=== PATIENT | male | born 1930 | race Hispanic/Latino ===

== ENCOUNTER 2017-12-11 17:50 | Emergency (ER) | payer MEDICARE ==
[~2017-12-11 17:50] MED LIST: DIGO125T87 PO; FURO40TA5 PO; GENTLESORB IRON PO; INSLAN SQ; INSU100C6 SQ; LATA2.5D2 OU; MEMA5TAB15 PO; OMEP20CA10 PO; WARF-67 PO
[2017-12-11 19:19] LABS: BASOPHILS % (AUTO) 1.2 % (0.0-5.0); EOSINOPHILS % (AUTO) 1.9 % (0.0-8.0); HEMATOCRIT 37.1 % (42-54); LYMPHOCYTES % (AUTO) 11.5 % (21.0-51.0); MEAN CORPUSCULAR HEMOGLOBIN 29.4 pg (27.0-33.0); MEAN CORPUSCULAR HGB CONC 32.2 g/dL (32.0-36.0); MEAN CORPUSCULAR VOLUME 91.3 fL (79-99); NEUTROPHILS % (AUTO) 77.4 % (40.0-77.0); PLATELET COUNT (AUTO) 82 K/uL (130-400); RED BLOOD CELL COUNT(AUTO) 4.06 MIL/uL (4.50-6.20); RED CELL DISTRIBUTION WIDTH 20.6 % (11.0-15.5)
[2017-12-11 19:31] LABS: CREATININE 1.1 mg/dL (0.5-1.5); POTASSIUM 4.2 mmol/L (3.5-5.1)
[2017-12-11 19:36] LABS: ALBUMIN 2.4 g/dL (3.5-5.0); BILIRUBIN,DIRECT 0.8 mg/dL (0.0-0.3); BILIRUBIN,TOTAL 1.2 mg/dL (0.2-1.0); TOTAL PROTEIN, SERUM 7.3 g/dL (6.0-8.3)
[2017-12-11 20:02] LABS: APPEARANCE,URINE Clear (CLEAR); BILIRUBIN,URINE Negative (NEGATIVE); COLOR,URINE Dark Yellow (YELLOW); GLUCOSE, URINE (UA) Negative (NEGATIVE); KETONES,URINE Negative (NEGATIVE); LEUKOCYTE ESTERASE ,URINE Negative (NEGATIVE); NITRATE,URINE Negative (NEGATIVE); OCCULT BLOOD,URINE Negative (NEGATIVE); PROTEIN,URINE Trace (NEGATIVE)
[2017-12-11 20:19] LABS: BACTERIA,URINE Rare /HPF (None Seen); RBC,URINE 0-1 /HPF (0-1); WBC,URINE 0-1 /HPF (0-1)
[2017-12-11 20:20] LABS: SQUAMOUS EPITHELIAL CELL,UR Rare /LPF (0-2)
[2017-12-11 21:10] LABS: INR 3.06 (0.85-1.15); PROTHROMBIN TIME 31.4 SEC (9.6-11.6)
[2017-12-11 21:23] LABS: PARTIAL THROMBOPLASTIN TIME > 120.0 SEC (26.3-35.5)
== END 2017-12-11 23:28 | disposition home or self-care (01) ==
LOC: EDH 17:50
DX: R94.5 Abnormal results of liver function studies (principal); R68.83 Chills (without fever); R53.1 Weakness; R10.31 Right lower quadrant pain; R10.32 Left lower quadrant pain; R19.7 Diarrhea, unspecified; R11.0 Nausea; E11.9 Type 2 diabetes mellitus without complications; E78.5 Hyperlipidemia, unspecified; I10 Essential (primary) hypertension; J44.9 Chronic obstructive pulmonary disease, unspecified; G30.9 Alzheimer's disease, unspecified; F02.80 Dementia in other diseases classified elsewhere, unspecified severity, without behavioral disturbance, psychotic disturbance, mood disturbance, and anxiety; Z88.6 Allergy status to analgesic agent; Z88.8 Allergy status to other drugs, medicaments and biological substances; Z79.899 Other long term (current) drug therapy; Z98.890 Other specified postprocedural states
CPT/HCPCS: 36415; 71046; 76705; 80048; 80076; 80162; 81001; 82948; 83605; 85025; 85610; 85730; 87804

== ENCOUNTER 2017-12-27 18:34 | Inpatient (IN) | payer MEDICARE ==
[~2017-12-27] VITALS: Ht 172.7 cm; Wt 73.4 kg
[2017-12-27 20:24] LABS: BASOPHILS % (AUTO) 0.5 % (0.0-5.0); EOSINOPHILS % (AUTO) 2.3 % (0.0-8.0); HEMATOCRIT 30.7 % (42-54); LYMPHOCYTES % (AUTO) 6.3 % (21.0-51.0); MEAN CORPUSCULAR HGB CONC 33.1 g/dL (32.0-36.0); MEAN CORPUSCULAR VOLUME 93.5 fL (79-99); MONOCYTES % (AUTO) 7.4 % (3.0-13.0); NEUTROPHILS % (AUTO) 83.5 % (40.0-77.0); PLATELET COUNT (AUTO) 130 K/uL (130-400); RED BLOOD CELL COUNT(AUTO) 3.29 MIL/uL (4.50-6.20); RED CELL DISTRIBUTION WIDTH 20.3 % (11.0-15.5); WHITE BLOOD COUNT (AUTO) 5.4 K/uL (4.8-10.8)
[2017-12-27 20:50] LABS: CREATININE 1.1 mg/dL (0.5-1.5); POTASSIUM 4.4 mmol/L (3.5-5.1)
[2017-12-27 20:54] LABS: INR 2.15 (0.85-1.15); PROTHROMBIN TIME 22.2 SEC (9.6-11.6)
[2017-12-27 21:11] LABS: PARTIAL THROMBOPLASTIN TIME > 120.0 SEC (26.3-35.5)
[2017-12-27 21:16] LABS: ALBUMIN 2.1 g/dL (3.5-5.0); BILIRUBIN,TOTAL 2.5 mg/dL (0.2-1.0); CREATINE KINASE MB 1.5 ng/mL (0.5-3.6); TOTAL PROTEIN, SERUM 6.8 g/dL (6.0-8.3)
[2017-12-27] MEDS ORDERED: AZITHROMYCIN 250 MG TABLET PO ONE (21:23)
[2017-12-27] MEDS ORDERED: CEFTRIAXONE SODIUM 1 GM ONE (21:23)
[2017-12-27] MEDS ORDERED: LEVOFLOXACIN 500 MG TABLET ONE (21:58)
[2017-12-28 01:58] VITALS: BP 119/55
[2017-12-28 02:02] LABS: APPEARANCE,URINE Cloudy (CLEAR); BILIRUBIN,URINE Negative (NEGATIVE); COLOR,URINE Dark Yellow (YELLOW); GLUCOSE, URINE (UA) Negative (NEGATIVE); KETONES,URINE Negative (NEGATIVE); LEUKOCYTE ESTERASE ,URINE Negative (NEGATIVE); NITRATE,URINE Negative (NEGATIVE); OCCULT BLOOD,URINE Negative (NEGATIVE); PROTEIN,URINE POS 1+ (NEGATIVE)
[2017-12-28 02:21] LABS: AMORPHOUS SEDIMENT,UR Moderate /LPF (None Seen); BACTERIA,URINE Rare /HPF (None Seen); MUCUS,URINE Rare LPF (None Seen); RBC,URINE None Seen /HPF (0-1); SQUAMOUS EPITHELIAL CELL,UR None Seen /LPF (0-2); WBC,URINE None Seen /HPF (0-1)
[2017-12-28 03:54] VITALS: BP 124/56
[2017-12-28 04:42] LABS: MEAN CORPUSCULAR HEMOGLOBIN 30.7 pg (27.0-33.0); MEAN CORPUSCULAR HGB CONC 33.2 g/dL (32.0-36.0); MEAN CORPUSCULAR VOLUME 92.3 fL (79-99); PLATELET COUNT (AUTO) 133 K/uL (130-400); RED BLOOD CELL COUNT(AUTO) 3.36 MIL/uL (4.50-6.20); RED CELL DISTRIBUTION WIDTH 20.5 % (11.0-15.5); WHITE BLOOD COUNT (AUTO) 5.1 K/uL (4.8-10.8)
[2017-12-28 04:51] LABS: MAGNESIUM 2.3 mg/dL (1.80-2.40); POTASSIUM 4.5 mmol/L (3.5-5.1)
[2017-12-28 04:54] LABS: INR 2.36 (0.85-1.15); PARTIAL THROMBOPLASTIN TIME 44.6 SEC (26.3-35.5); PROTHROMBIN TIME 24.4 SEC (9.6-11.6)
[2017-12-28 07:24] VITALS: BP 118/51
[2017-12-28] MEDS ORDERED: DEXTROSE 50%-WATER 50 ML DISP.SYRIN IV PRN (08:00)
[2017-12-28] MEDS ORDERED: GLUCAGON 1MG KIT 1 MG ML IM PRN (08:00)
[2017-12-28] MEDS: [UNRECOGNIZED DRUG - OTHER] PO SCH ×2 (08:00→15:33)
[2017-12-28] MEDS: LEVOFLOXACIN 500 MG TABLET PO SCH (08:52)
[2017-12-28] MEDS: FUROSEMIDE 10 MG/ML 2ML VIAL IVP SCH ×2 (08:52→20:32)
[2017-12-28] MEDS: POTASSIUM CHLORIDE 20 MEQ ERTAB PO SCH ×2 (08:53→20:33)
[2017-12-28] MEDS: PANTOPRAZOLE SODIUM 40 MG TABLET.DR PO SCH (08:54)
[2017-12-28] MEDS ORDERED: RIVA4.6T TD (08:57)
[2017-12-28] MEDS ORDERED: MEMANTINE HCL 5 MG TABLET PO SCH (09:00)
[2017-12-28] MEDS: RIVASTIGMINE 4.6MG/24HR PATCH TD SCH (09:53)
[2017-12-28 11:15] VITALS: BP 125/55
[2017-12-28] MEDS: INSULIN HUMULIN R 100 UNIT/ML 3ML SQ SCH ×2 (11:26→16:30)
[2017-12-28] MEDS: LATANOPROST 2.5 ML DROPS OU SCH ×2 (15:40→20:33)
[2017-12-28 16:15] VITALS: BP 126/62
[2017-12-28] MEDS ORDERED: WARFARIN SODIUM 2 MG TAB PO SCH (17:00)
[2017-12-28 19:56] VITALS: BP 127/71
[2017-12-29] VITALS (7 sets, daily range): BP systolic 125–134; BP diastolic 54–68
[2017-12-29] MEDS: INSULIN HUMULIN R 100 UNIT/ML 3ML SQ SCH ×5 (00:39→21:00)
[2017-12-29 04:46] LABS: INR 2.34 (0.85-1.15); PROTHROMBIN TIME 24.2 SEC (9.6-11.6)
[2017-12-29 04:48] LABS: CREATININE 1.1 mg/dL (0.5-1.5); POTASSIUM 4.9 mmol/L (3.5-5.1)
[2017-12-29] MEDS: PANTOPRAZOLE SODIUM 40 MG TABLET.DR PO SCH (06:23)
[2017-12-29] MEDS: [UNRECOGNIZED DRUG - OTHER] PO SCH ×2 (08:00→17:00)
[2017-12-29] MEDS ORDERED: ACETAMINOPHEN 325 MG TAB ONE (09:58)
[2017-12-29] MEDS: LEVOFLOXACIN 500 MG TABLET PO SCH (11:18)
[2017-12-29] MEDS: POTASSIUM CHLORIDE 20 MEQ ERTAB PO SCH ×2 (11:18→21:00)
[2017-12-29] MEDS: RIVASTIGMINE 4.6MG/24HR PATCH TD SCH (11:19)
[2017-12-29] MEDS: IPRATROPIUM/ALBUTEROL SULFATE 3 ML SOLUTION IH SCH ×3 (13:37→23:49)
[2017-12-29] MEDS: CEFEPIME HCL 1 GM VIAL IVP SCH (14:00)
[2017-12-29] MEDS ORDERED: IPRATROPIUM/ALBUTEROL SULFATE 3 ML SOLUTION IH SCH (14:00)
[2017-12-29] MEDS: DIGOXIN 125 MCG TABLET PO SCH (16:18)
[2017-12-29] MEDS: WARFARIN SODIUM 1 MG TAB PO SCH (16:19)
[2017-12-29] MEDS ORDERED: COMPOUND IV REFRIGERATED 1 EACH IVSOLN MISC PRN (16:30)
[2017-12-29] MEDS: ACETYLCYSTEINE 20% 200MG/ML 4ML VIAL IH SCH ×2 (18:58→23:49)
[2017-12-29] MEDS ORDERED: CEFEPIME 1GM+NS 50ML 50 ML IV SCH (21:00)
[2017-12-29] MEDS ORDERED: POTASSIUM CHLORIDE 10 MEQ/TAB.SA PO ONE ×2 (21:34)
[2017-12-29] MEDS: BUMETANIDE 0.25 MG/ML 10 ML 40 ML IV SCH (22:08)
[2017-12-29] MEDS: LATANOPROST 2.5 ML DROPS OU SCH (22:09)
[2017-12-30] MEDS: CEFEPIME HCL 1 GM VIAL IVP SCH ×2 (02:33→14:02)
[2017-12-30 04:04] VITALS: BP 118/54
[2017-12-30 05:00] LABS: INR 2.43 (0.85-1.15); PROTHROMBIN TIME 25.1 SEC (9.6-11.6)
[2017-12-30 05:05] LABS: CREATININE 1.2 mg/dL (0.5-1.5); POTASSIUM 4.3 mmol/L (3.5-5.1)
[2017-12-30] MEDS: IPRATROPIUM/ALBUTEROL SULFATE 3 ML SOLUTION IH SCH ×3 (05:53→18:59)
[2017-12-30] MEDS: ACETYLCYSTEINE 20% 200MG/ML 4ML VIAL IH SCH ×3 (05:53→18:59)
[2017-12-30] MEDS: INSULIN HUMULIN R 100 UNIT/ML 3ML SQ SCH ×4 (06:04→21:23)
[2017-12-30] MEDS: PANTOPRAZOLE SODIUM 40 MG TABLET.DR PO SCH (06:28)
[2017-12-30] MEDS: BUMETANIDE 0.25 MG/ML 10 ML 40 ML IV SCH (06:28)
[2017-12-30 07:00] VITALS: BP 113/58
[2017-12-30] MEDS: LEVOFLOXACIN 500 MG TABLET PO SCH (10:23)
[2017-12-30] MEDS: POTASSIUM CHLORIDE 20 MEQ ERTAB PO SCH ×2 (10:24→21:18)
[2017-12-30] MEDS: RIVASTIGMINE 4.6MG/24HR PATCH TD SCH (10:24)
[2017-12-30 11:00] VITALS: BP 107/51
[2017-12-30 13:55] LABS: HEMATOCRIT 31.2 % (42-54); MEAN CORPUSCULAR HEMOGLOBIN 30.4 pg (27.0-33.0); MEAN CORPUSCULAR HGB CONC 33.2 g/dL (32.0-36.0); MEAN CORPUSCULAR VOLUME 91.7 fL (79-99); PLATELET COUNT (AUTO) 136 K/uL (130-400); WHITE BLOOD COUNT (AUTO) 4.8 K/uL (4.8-10.8)
[2017-12-30 14:03] LABS: CREATININE 1.3 mg/dL (0.5-1.5); POTASSIUM 4.4 mmol/L (3.5-5.1)
[2017-12-30] MEDS: [UNRECOGNIZED DRUG - OTHER] PO SCH (17:00)
[2017-12-30] MEDS: WARFARIN SODIUM 1 MG TAB PO SCH (17:20)
[2017-12-30] MEDS: LATANOPROST 2.5 ML DROPS OU SCH (21:00)
[2017-12-30 21:27] VITALS: BP 124/56
[2017-12-30] MEDS ORDERED: ACETAMINOPHEN 325 MG TAB PO PRN (22:30)
[2017-12-30] MEDS ORDERED: IBUPROFEN 200 MG TAB PO PRN (22:30)
[2017-12-31] VITALS (8 sets, daily range): BP systolic 91–123; BP diastolic 43–60
[2017-12-31] MEDS: CEFEPIME HCL 1 GM VIAL IVP SCH ×2 (03:21→14:22)
[2017-12-31 05:35] LABS: CREATININE 1.4 mg/dL (0.5-1.5); POTASSIUM 4.2 mmol/L (3.5-5.1)
[2017-12-31] MEDS: INSULIN HUMULIN R 100 UNIT/ML 3ML SQ SCH ×4 (06:32→20:39)
[2017-12-31] MEDS: IPRATROPIUM/ALBUTEROL SULFATE 3 ML SOLUTION IH SCH ×5 (06:58→23:07)
[2017-12-31] MEDS: ACETYLCYSTEINE 20% 200MG/ML 4ML VIAL IH SCH ×3 (06:59→11:21)
[2017-12-31] MEDS: [UNRECOGNIZED DRUG - OTHER] PO SCH ×2 (08:00→16:54)
[2017-12-31] MEDS: POTASSIUM CHLORIDE 20 MEQ ERTAB PO SCH ×2 (08:22→19:46)
[2017-12-31] MEDS: FUROSEMIDE 20 MG TABLET PO SCH ×2 (08:22→19:46)
[2017-12-31] MEDS: LEVOFLOXACIN 500 MG TABLET PO SCH (08:22)
[2017-12-31] MEDS: PANTOPRAZOLE SODIUM 40 MG TABLET.DR PO SCH (08:22)
[2017-12-31] MEDS: RIVASTIGMINE 4.6MG/24HR PATCH TD SCH (08:34)
[2017-12-31] MEDS: WARFARIN SODIUM 1 MG TAB PO SCH (16:11)
[2017-12-31] MEDS: DIGOXIN 125 MCG TABLET PO SCH (16:11)
[2017-12-31] MEDS ORDERED: ACETYLCYSTEINE 20% 200MG/ML 4ML VIAL ONE (18:01)
[2017-12-31] MEDS: LATANOPROST 2.5 ML DROPS OU SCH (19:47)
[2018-01-01] MEDS: CEFEPIME HCL 1 GM VIAL IVP SCH (02:22)
[2018-01-01 04:37] VITALS: BP 117/52
[2018-01-01 04:50] LABS: MEAN CORPUSCULAR HGB CONC 34.5 g/dL (32.0-36.0); MEAN CORPUSCULAR VOLUME 92.8 fL (79-99); PLATELET COUNT (AUTO) 132 K/uL (130-400); RED BLOOD CELL COUNT(AUTO) 3.45 MIL/uL (4.50-6.20); RED CELL DISTRIBUTION WIDTH 20.4 % (11.0-15.5); WHITE BLOOD COUNT (AUTO) 5.5 K/uL (4.8-10.8)
[2018-01-01 05:28] LABS: CREATININE 1.6 mg/dL (0.5-1.5); POTASSIUM 4.7 mmol/L (3.5-5.1); TOTAL PROTEIN, SERUM 6.9 g/dL (6.0-8.3)
[2018-01-01] MEDS: INSULIN HUMULIN R 100 UNIT/ML 3ML SQ SCH (06:01)
[2018-01-01] MEDS: IPRATROPIUM/ALBUTEROL SULFATE 3 ML SOLUTION IH SCH ×2 (06:07→11:34)
[2018-01-01] MEDS: LEVOFLOXACIN 500 MG TABLET PO SCH (07:58)
[2018-01-01] MEDS: PANTOPRAZOLE SODIUM 40 MG TABLET.DR PO SCH (07:58)
[2018-01-01] MEDS: [UNRECOGNIZED DRUG - OTHER] PO SCH (07:59)
[2018-01-01] MEDS: FUROSEMIDE 20 MG TABLET PO SCH (07:59)
[2018-01-01] MEDS: POTASSIUM CHLORIDE 20 MEQ ERTAB PO SCH (07:59)
[2018-01-01] MEDS: RIVASTIGMINE 4.6MG/24HR PATCH TD SCH (08:42)
[2018-01-01 09:04] VITALS: BP 105/47
== END 2018-01-01 13:05 | DRG 291 ==
LOC: EDH 18:34 → EDHIP 22:05 → 2AH 12-28 01:35 → 4AH 12-30 16:58
PROVIDERS: ADMIT Internal Medicine; ATTEND Internal Medicine
DX: I13.0 Hypertensive heart and chronic kidney disease with heart failure and stage 1 through stage 4 chronic kidney disease, or unspecified chronic kidney disease (principal); J18.9 Pneumonia, unspecified organism; J96.90 Respiratory failure, unspecified, unspecified whether with hypoxia or hypercapnia; E11.22 Type 2 diabetes mellitus with diabetic chronic kidney disease; E88.09 Other disorders of plasma-protein metabolism, not elsewhere classified; C18.9 Malignant neoplasm of colon, unspecified; F05 Delirium due to known physiological condition; I07.1 Rheumatic tricuspid insufficiency; I50.43 Acute on chronic combined systolic (congestive) and diastolic (congestive) heart failure; J44.0 Chronic obstructive pulmonary disease with (acute) lower respiratory infection; J44.1 Chronic obstructive pulmonary disease with (acute) exacerbation; D64.9 Anemia, unspecified; I48.2 Chronic atrial fibrillation; E11.319 Type 2 diabetes mellitus with unspecified diabetic retinopathy without macular edema; E78.5 Hyperlipidemia, unspecified; E87.6 Hypokalemia; I25.5 Ischemic cardiomyopathy; I27.29 Other secondary pulmonary hypertension; I27.81 Cor pulmonale (chronic); G20 Parkinson's disease; F02.80 Dementia in other diseases classified elsewhere, unspecified severity, without behavioral disturbance, psychotic disturbance, mood disturbance, and anxiety; I34.0 Nonrheumatic mitral (valve) insufficiency; H54.7 Unspecified visual loss; I35.1 Nonrheumatic aortic (valve) insufficiency; I45.10 Unspecified right bundle-branch block; N18.9 Chronic kidney disease, unspecified; I25.118 Atherosclerotic heart disease of native coronary artery with other forms of angina pectoris; Z79.01 Long term (current) use of anticoagulants; Z87.891 Personal history of nicotine dependence; Z88.1 Allergy status to other antibiotic agents; Z95.2 Presence of prosthetic heart valve; Z92.21 Personal history of antineoplastic chemotherapy; Z66 Do not resuscitate; Z91.19 Patient's noncompliance with other medical treatment and regimen; Z95.1 Presence of aortocoronary bypass graft; Z95.3 Presence of xenogenic heart valve; R79.89 Other specified abnormal findings of blood chemistry
CPT/HCPCS: 36415; 71045; 80048; 80053; 81001; 82550; 82553; 82948; 83605; 83735; 83880; 84484; 85025; 85027; 85610; 85730; 87040; 87088; 87186; 87804; 93005; 93306; 94640; 94664; 97039; A4218; J0692; J0696; J1815; J1940; J3490; J7608

== ENCOUNTER 2018-01-30 15:20 | Inpatient (IN) | payer MEDICARE ==
[~2018-01-30] VITALS: Ht 170.2 cm; Wt 78.9 kg
[~2018-01-30 15:20] MED LIST changes: +RIVA4.6T TD
[2018-01-30 15:58] LABS: BASOPHILS % (AUTO) 0.6 % (0.0-5.0); HEMATOCRIT 35.2 % (42-54); LYMPHOCYTES % (AUTO) 13.2 % (21.0-51.0); MEAN CORPUSCULAR HEMOGLOBIN 30.3 pg (27.0-33.0); MEAN CORPUSCULAR HGB CONC 32.6 g/dL (32.0-36.0); MEAN CORPUSCULAR VOLUME 93.1 fL (79-99); MONOCYTES % (AUTO) 6.6 % (3.0-13.0); NEUTROPHILS % (AUTO) 78.6 % (40.0-77.0); PLATELET COUNT (AUTO) 100 K/uL (130-400); RED BLOOD CELL COUNT(AUTO) 3.78 MIL/uL (4.50-6.20); RED CELL DISTRIBUTION WIDTH 17.3 % (11.0-15.5); WHITE BLOOD COUNT (AUTO) 5.9 K/uL (4.8-10.8)
[2018-01-30 16:10] LABS: CREATININE 1.2 mg/dL (0.5-1.5); POTASSIUM 4.5 mmol/L (3.5-5.1)
[2018-01-30 16:11] LABS: PARTIAL THROMBOPLASTIN TIME 50.6 SEC (26.3-35.5)
[2018-01-30 16:24] LABS: ALBUMIN 2.1 g/dL (3.5-5.0); BILIRUBIN,TOTAL 1.4 mg/dL (0.2-1.0); CREATINE KINASE MB 1.2 ng/mL (0.5-3.6); TOTAL PROTEIN, SERUM 7.3 g/dL (6.0-8.3)
[2018-01-30 16:25] LABS: PROTHROMBIN TIME 42.8 SEC (9.6-11.6)
[2018-01-30 16:26] LABS: INR 4.19 (0.85-1.15)
[2018-01-30 16:27] LABS: B-TYPE NATRIURETIC PEPTIDE 1630 pg/mL (0-100)
[2018-01-30 17:17] LABS: APPEARANCE,URINE Clear (CLEAR); BILIRUBIN,URINE Negative (NEGATIVE); COLOR,URINE Dark Yellow (YELLOW); GLUCOSE, URINE (UA) Negative (NEGATIVE); KETONES,URINE Negative (NEGATIVE); LEUKOCYTE ESTERASE ,URINE Moderate (NEGATIVE); NITRATE,URINE Negative (NEGATIVE); OCCULT BLOOD,URINE Negative (NEGATIVE); PROTEIN,URINE Trace (NEGATIVE)
[2018-01-30 17:23] LABS: RBC,URINE 0-1 /HPF (0-1)
[2018-01-30 17:24] LABS: BACTERIA,URINE Rare /HPF (None Seen); SQUAMOUS EPITHELIAL CELL,UR Rare /HPF (0-2)
[2018-01-30] MEDS ORDERED: LEVOFLOXACIN 500 MG/D5W 100 ML 100 ML ONE (17:53)
[2018-01-30] MEDS ORDERED: SODIUM CHLORIDE 0.9% 500ML 500 ML IV ONE (19:26)
[2018-01-30 20:46] VITALS: BP 131/80
[2018-01-30 23:31] VITALS: BP 146/76
[2018-01-30] MEDS: MEROPENEM 1 GM VIAL IVP SCH (23:31)
[2018-01-30] MEDS: 1/2 NORMAL SALINE 1,000 ML IV SCH (23:31)
[2018-01-31 03:58] VITALS: BP 138/59
[2018-01-31 04:58] LABS: HEMATOCRIT 34.8 % (42-54); MEAN CORPUSCULAR HEMOGLOBIN 31.8 pg (27.0-33.0); MEAN CORPUSCULAR VOLUME 93.5 fL (79-99); PLATELET COUNT (AUTO) 107 K/uL (130-400); RED BLOOD CELL COUNT(AUTO) 3.72 MIL/uL (4.50-6.20); RED CELL DISTRIBUTION WIDTH 17.4 % (11.0-15.5); WHITE BLOOD COUNT (AUTO) 7.2 K/uL (4.8-10.8)
[2018-01-31 05:06] LABS: POTASSIUM 4.2 mmol/L (3.5-5.1)
[2018-01-31] MEDS ORDERED: ERYT1OIN7 OU (05:33)
[2018-01-31] MEDS ORDERED: CARB1DRO25 OU (05:33)
[2018-01-31] MEDS ORDERED: XALA2.5OS OU (05:33)
[2018-01-31] MEDS ORDERED: [UNRECOGNIZED DRUG - CODE] OU (05:33)
[2018-01-31] MEDS: 1/2 NORMAL SALINE 1,000 ML IV SCH ×2 (06:00→09:20)
[2018-01-31] MEDS ORDERED: DIGO125T87 PO (06:41)
[2018-01-31] MEDS ORDERED: ATOR10TA69 PO (06:41)
[2018-01-31] MEDS ORDERED: ASCO500T8 PO (06:41)
[2018-01-31] MEDS ORDERED: PANT40TA PO (06:41)
[2018-01-31] MEDS ORDERED: FURO40TA5 PO (06:41)
[2018-01-31] MEDS ORDERED: VIT1CAPS4 PO (06:45)
[2018-01-31 07:15] VITALS: BP 139/65
[2018-01-31] MEDS: IRON 18 MG PO SCH ×2 (08:00→17:00)
[2018-01-31] MEDS: ARTIFICIAL TEARS 3.5 GM OINTMENT OU SCH ×4 (09:00→21:00)
[2018-01-31] MEDS: ERYTHROMYCIN BASE 0.5% OPHTH OINT 1 GM TUBE OU SCH ×4 (09:00→21:00)
[2018-01-31] MEDS: ARTIFICAL TEARS SOL 15 ML OU SCH ×4 (09:00→21:00)
[2018-01-31] MEDS: OCCUVITE PO SCH ×2 (09:00→17:04)
[2018-01-31] MEDS ORDERED: DIATR MEGLU/DIATRIZOATE SODIUM 30 ML BOTTLE ONE (09:05)
[2018-01-31] MEDS: MEROPENEM 1 GM VIAL IVP SCH ×2 (09:17→20:38)
[2018-01-31] MEDS: FUROSEMIDE 40 MG TABLET PO SCH (09:18)
[2018-01-31] MEDS: ASCORBIC ACID 500 MG TAB PO SCH ×2 (09:19→20:38)
[2018-01-31] MEDS: RIVASTIGMINE 4.6MG/24HR PATCH TD SCH (09:42)
[2018-01-31 11:31] VITALS: BP 142/65
[2018-01-31 16:30] VITALS: BP 133/78
[2018-01-31 19:51] VITALS: BP 128/51
[2018-01-31] MEDS: ATORVASTATIN CALCIUM 10 MG TABLET PO SCH (20:38)
[2018-01-31] MEDS: LATANOPROST 2.5 ML DROPS OU SCH (21:00)
[2018-01-31 23:45] VITALS: BP 139/67
[2018-02-01 03:37] VITALS: BP 130/65
[2018-02-01 04:37] LABS: HEMATOCRIT 36.8 % (42-54); MEAN CORPUSCULAR HEMOGLOBIN 30.8 pg (27.0-33.0); MEAN CORPUSCULAR VOLUME 93.2 fL (79-99); PLATELET COUNT (AUTO) 110 K/uL (130-400); RED BLOOD CELL COUNT(AUTO) 3.95 MIL/uL (4.50-6.20); RED CELL DISTRIBUTION WIDTH 17.4 % (11.0-15.5); WHITE BLOOD COUNT (AUTO) 7.4 K/uL (4.8-10.8)
[2018-02-01 04:50] LABS: INR 2.35 (0.85-1.15); PARTIAL THROMBOPLASTIN TIME 41.4 SEC (26.3-35.5); PROTHROMBIN TIME 23.6 SEC (9.6-11.6)
[2018-02-01 04:52] LABS: CREATININE 1.1 mg/dL (0.5-1.5); POTASSIUM 4.2 mmol/L (3.5-5.1)
[2018-02-01] MEDS: PANTOPRAZOLE SODIUM 40 MG TABLET.DR PO SCH (06:49)
[2018-02-01 07:20] VITALS: BP 135/73
[2018-02-01] MEDS: IRON 18 MG PO SCH ×2 (08:00→16:22)
[2018-02-01] MEDS: ERYTHROMYCIN BASE 0.5% OPHTH OINT 1 GM TUBE OU SCH ×4 (09:00→20:18)
[2018-02-01] MEDS: OCCUVITE PO SCH ×2 (09:00→16:22)
[2018-02-01] MEDS: ARTIFICIAL TEARS 3.5 GM OINTMENT OU SCH ×4 (09:24→20:18)
[2018-02-01] MEDS: FUROSEMIDE 40 MG TABLET PO SCH (09:25)
[2018-02-01] MEDS: MEROPENEM 1 GM VIAL IVP SCH ×2 (09:25→20:17)
[2018-02-01] MEDS: RIVASTIGMINE 4.6MG/24HR PATCH TD SCH (09:25)
[2018-02-01] MEDS: ASCORBIC ACID 500 MG TAB PO SCH ×2 (09:26→20:17)
[2018-02-01] MEDS: ARTIFICAL TEARS SOL 15 ML OU SCH ×4 (09:29→20:18)
[2018-02-01 11:34] VITALS: BP 133/80
[2018-02-01] MEDS: 1/2 NORMAL SALINE 1,000 ML IV SCH ×2 (12:00→20:30)
[2018-02-01] MEDS ORDERED: BISMUTH SUBSALICYLATE 262 MG/15 ML ML PO PRN (12:30)
[2018-02-01] MEDS ORDERED: BISM262O PO (12:31)
[2018-02-01] MEDS ORDERED: LORAZEPAM 2 MG/ML 1 ML VIAL IVP PRN (14:00)
[2018-02-01] MEDS: LORAZEPAM 2 MG/ML 1 ML VIAL IVP PRN ×2 (14:23→21:44)
[2018-02-01] MEDS ORDERED: INSULIN GLARGINE 100 UNITS/ML 10 ML VIAL SQ SCH (15:45)
[2018-02-01] MEDS ORDERED: INSULIN ASPART 100 UNIT SQ SCH (15:45)
[2018-02-01] MEDS ORDERED: INSLAN SQ (15:52)
[2018-02-01] MEDS ORDERED: INSU100I3 SQ (15:52)
[2018-02-01] MEDS: INSULIN LISPRO 100 UNIT/ML 3ML SQ SCH (16:30)
[2018-02-01 16:42] VITALS: BP 123/58
[2018-02-01 19:45] VITALS: BP 126/57
[2018-02-01] MEDS: ATORVASTATIN CALCIUM 10 MG TABLET PO SCH (20:17)
[2018-02-01] MEDS: QUETIAPINE FUMARATE 25 MG TAB PO SCH (20:17)
[2018-02-01] MEDS: LATANOPROST 2.5 ML DROPS OU SCH (20:18)
[2018-02-02 00:11] VITALS: BP 144/64
[2018-02-02] MEDS: 1/2 NORMAL SALINE 1,000 ML IV SCH ×3 (00:23→23:35)
[2018-02-02 04:34] VITALS: BP 124/57
[2018-02-02] MEDS: PANTOPRAZOLE SODIUM 40 MG TABLET.DR PO SCH ×2 (06:46→10:07)
[2018-02-02] MEDS: INSULIN LISPRO 100 UNIT/ML 3ML SQ SCH ×2 (06:55→16:30)
[2018-02-02 07:00] VITALS: BP 116/56
[2018-02-02] MEDS: IRON 18 MG PO SCH ×2 (08:00→17:00)
[2018-02-02] MEDS: ARTIFICIAL TEARS 3.5 GM OINTMENT OU SCH ×4 (09:00→21:00)
[2018-02-02] MEDS: ARTIFICAL TEARS SOL 15 ML OU SCH ×4 (09:00→21:06)
[2018-02-02] MEDS: ERYTHROMYCIN BASE 0.5% OPHTH OINT 1 GM TUBE OU SCH ×4 (09:00→21:00)
[2018-02-02] MEDS: INSULIN GLARGINE 100 UNITS/ML 10 ML VIAL SQ SCH (09:00)
[2018-02-02] MEDS: OCCUVITE PO SCH ×2 (09:00→17:58)
[2018-02-02] MEDS: MEROPENEM 1 GM VIAL IVP SCH ×2 (10:09→21:04)
[2018-02-02] MEDS: FUROSEMIDE 40 MG TABLET PO SCH (10:10)
[2018-02-02] MEDS: ASCORBIC ACID 500 MG TAB PO SCH ×2 (10:10→21:04)
[2018-02-02] MEDS: DIGOXIN 125 MCG TABLET PO SCH (10:10)
[2018-02-02] MEDS: RIVASTIGMINE 4.6MG/24HR PATCH TD SCH (10:11)
[2018-02-02 11:00] VITALS: BP 125/49
[2018-02-02 16:00] VITALS: BP 128/56
[2018-02-02] MEDS: WARFARIN SODIUM 2.5 MG TAB PO SCH (18:19)
[2018-02-02 19:20] VITALS: BP 135/75
[2018-02-02] MEDS: LATANOPROST 2.5 ML DROPS OU SCH (21:00)
[2018-02-02] MEDS: ATORVASTATIN CALCIUM 10 MG TABLET PO SCH (21:04)
[2018-02-02] MEDS: QUETIAPINE FUMARATE 25 MG TAB PO SCH (21:04)
[2018-02-03 00:10] VITALS: BP 120/56
[2018-02-03] MEDS: 1/2 NORMAL SALINE 1,000 ML IV SCH ×2 (03:30→18:17)
[2018-02-03 04:20] VITALS: BP 108/60
[2018-02-03 06:28] LABS: HEMATOCRIT 33.5 % (42-54); MEAN CORPUSCULAR HEMOGLOBIN 30.6 pg (27.0-33.0); MEAN CORPUSCULAR HGB CONC 32.8 g/dL (32.0-36.0); MEAN CORPUSCULAR VOLUME 93.4 fL (79-99); PLATELET COUNT (AUTO) 92 K/uL (130-400); RED BLOOD CELL COUNT(AUTO) 3.58 MIL/uL (4.50-6.20); RED CELL DISTRIBUTION WIDTH 16.9 % (11.0-15.5); WHITE BLOOD COUNT (AUTO) 4.9 K/uL (4.8-10.8)
[2018-02-03] MEDS: PANTOPRAZOLE SODIUM 40 MG TABLET.DR PO SCH (06:42)
[2018-02-03] MEDS: INSULIN LISPRO 100 UNIT/ML 3ML SQ SCH ×2 (06:42→18:32)
[2018-02-03 06:43] LABS: INR 1.83 (0.85-1.15); PARTIAL THROMBOPLASTIN TIME 41.4 SEC (26.3-35.5); PROTHROMBIN TIME 18.5 SEC (9.6-11.6)
[2018-02-03] MEDS: IRON 18 MG PO SCH ×2 (08:00→17:00)
[2018-02-03 08:35] VITALS: BP 120/63
[2018-02-03] MEDS: INSULIN GLARGINE 100 UNITS/ML 10 ML VIAL SQ SCH (09:00)
[2018-02-03] MEDS: ARTIFICIAL TEARS 3.5 GM OINTMENT OU SCH ×4 (09:00→20:08)
[2018-02-03] MEDS: ARTIFICAL TEARS SOL 15 ML OU SCH ×4 (09:00→20:08)
[2018-02-03] MEDS: ERYTHROMYCIN BASE 0.5% OPHTH OINT 1 GM TUBE OU SCH ×4 (09:00→20:09)
[2018-02-03] MEDS: OCCUVITE PO SCH ×3 (09:00→20:11)
[2018-02-03] MEDS: FUROSEMIDE 40 MG TABLET PO SCH (09:32)
[2018-02-03] MEDS: RIVASTIGMINE 4.6MG/24HR PATCH TD SCH (09:32)
[2018-02-03] MEDS: ASCORBIC ACID 500 MG TAB PO SCH ×2 (09:32→20:07)
[2018-02-03] MEDS: MEROPENEM 1 GM VIAL IVP SCH ×2 (09:33→20:06)
[2018-02-03 09:37] LABS: APPEARANCE,URINE Cloudy (CLEAR); BILIRUBIN,URINE Negative (NEGATIVE); COLOR,URINE Dark Yellow (YELLOW); GLUCOSE, URINE (UA) Negative (NEGATIVE); KETONES,URINE Negative (NEGATIVE); LEUKOCYTE ESTERASE ,URINE Small (NEGATIVE); NITRATE,URINE Negative (NEGATIVE); OCCULT BLOOD,URINE Large (NEGATIVE); PROTEIN,URINE Trace (NEGATIVE)
[2018-02-03 09:45] LABS: BACTERIA,URINE Rare /HPF (None Seen); RBC,URINE 51-100 /HPF (0-1); SQUAMOUS EPITHELIAL CELL,UR Rare /HPF (0-2)
[2018-02-03 12:03] VITALS: BP 115/53
[2018-02-03 16:59] VITALS: BP 128/50
[2018-02-03 19:15] VITALS: BP 122/52
[2018-02-03] MEDS: ATORVASTATIN CALCIUM 10 MG TABLET PO SCH (20:07)
[2018-02-03] MEDS: QUETIAPINE FUMARATE 25 MG TAB PO SCH (20:07)
[2018-02-03] MEDS: LATANOPROST 2.5 ML DROPS OU SCH (20:09)
[2018-02-04] VITALS (7 sets, daily range): BP systolic 116–146; BP diastolic 53–61
[2018-02-04] MEDS: 1/2 NORMAL SALINE 1,000 ML IV SCH ×3 (03:14→20:00)
[2018-02-04] MEDS: PANTOPRAZOLE SODIUM 40 MG TABLET.DR PO SCH (06:20)
[2018-02-04] MEDS: INSULIN LISPRO 100 UNIT/ML 3ML SQ SCH ×2 (06:20→16:17)
[2018-02-04] MEDS ORDERED: VANCOMYCIN PROTOCOL PER PHARMACY IV SCH (06:45)
[2018-02-04] MEDS: IRON 18 MG PO SCH ×2 (08:00→16:20)
[2018-02-04] MEDS: ERYTHROMYCIN BASE 0.5% OPHTH OINT 1 GM TUBE OU SCH ×4 (09:00→22:08)
[2018-02-04] MEDS: ARTIFICIAL TEARS 3.5 GM OINTMENT OU SCH ×4 (09:00→22:05)
[2018-02-04] MEDS: OCCUVITE PO SCH ×2 (09:00→18:00)
[2018-02-04] MEDS: ARTIFICAL TEARS SOL 15 ML OU SCH ×4 (09:00→22:05)
[2018-02-04] MEDS: WARFARIN SODIUM 2.5 MG TAB PO SCH (09:00)
[2018-02-04] MEDS ORDERED: COMPOUND IV REFRIGERATED 1 EACH IVSOLN MISC PRN (09:15)
[2018-02-04] MEDS: ASCORBIC ACID 500 MG TAB PO SCH ×2 (10:29→22:04)
[2018-02-04] MEDS: FUROSEMIDE 40 MG TABLET PO SCH (10:29)
[2018-02-04] MEDS: RIVASTIGMINE 4.6MG/24HR PATCH TD SCH (10:31)
[2018-02-04] MEDS: VANCOMYCIN 750MG + NS 250 ML IV SCH ×4 (10:32→22:11)
[2018-02-04] MEDS: DIGOXIN 125 MCG TABLET PO SCH (10:44)
[2018-02-04] MEDS: INSULIN GLARGINE 100 UNITS/ML 10 ML VIAL SQ SCH (12:24)
[2018-02-04] MEDS ORDERED: WARFARIN SODIUM 2.5 MG TAB PO SCH (16:00)
[2018-02-04] MEDS: ATORVASTATIN CALCIUM 10 MG TABLET PO SCH (22:04)
[2018-02-04] MEDS: QUETIAPINE FUMARATE 25 MG TAB PO SCH (22:04)
[2018-02-04] MEDS: LATANOPROST 2.5 ML DROPS OU SCH (22:08)
[2018-02-05 04:12] VITALS: BP 131/54
[2018-02-05] MEDS: INSULIN LISPRO 100 UNIT/ML 3ML SQ SCH (06:11)
[2018-02-05 08:00] VITALS: BP 122/59
[2018-02-05] MEDS: IRON 18 MG PO SCH (08:00)
[2018-02-05] MEDS: ASCORBIC ACID 500 MG TAB PO SCH (08:31)
[2018-02-05] MEDS: PANTOPRAZOLE SODIUM 40 MG TABLET.DR PO SCH (08:31)
[2018-02-05] MEDS: FUROSEMIDE 40 MG TABLET PO SCH (08:31)
[2018-02-05] MEDS: VANCOMYCIN 750MG + NS 250 ML IV SCH ×2 (08:32)
[2018-02-05] MEDS: ARTIFICAL TEARS SOL 15 ML OU SCH (08:32)
[2018-02-05] MEDS: ARTIFICIAL TEARS 3.5 GM OINTMENT OU SCH (08:32)
[2018-02-05] MEDS: ERYTHROMYCIN BASE 0.5% OPHTH OINT 1 GM TUBE OU SCH (08:33)
[2018-02-05] MEDS: OCCUVITE PO SCH (08:33)
[2018-02-05] MEDS: INSULIN GLARGINE 100 UNITS/ML 10 ML VIAL SQ SCH (08:40)
[2018-02-05] MEDS: RIVASTIGMINE 4.6MG/24HR PATCH TD SCH (08:47)
[2018-02-05] MEDS ORDERED: HEPARIN SODIUM 5000UNIT/ML 1ML VIAL ONE (10:43)
[2018-02-05] MEDS ORDERED: HEPARIN SODIUM 5000UNIT/ML 1ML VIAL IV ONE (12:00)
== END 2018-02-05 10:45 | DRG 871 ==
LOC: EDH 15:20 → EDHIP 18:58 → 2DH 20:29 → 3AH 02-01 17:25
PROVIDERS: ADMIT Internal Medicine; ATTEND Internal Medicine
PROC: 02H633Z Insertion of Infusion Device into Right Atrium, Percutaneous Approach (ICD-10-PCS; principal; 2018-02-04)
DX: A41.9 Sepsis, unspecified organism (principal); G93.41 Metabolic encephalopathy; E44.0 Moderate protein-calorie malnutrition; R64 Cachexia; G20 Parkinson's disease; I48.91 Unspecified atrial fibrillation; N02.9 Recurrent and persistent hematuria with unspecified morphologic changes; I50.30 Unspecified diastolic (congestive) heart failure; E11.9 Type 2 diabetes mellitus without complications; I11.0 Hypertensive heart disease with heart failure; F05 Delirium due to known physiological condition; N39.0 Urinary tract infection, site not specified; G30.9 Alzheimer's disease, unspecified; E78.5 Hyperlipidemia, unspecified; N13.9 Obstructive and reflux uropathy, unspecified; J44.9 Chronic obstructive pulmonary disease, unspecified; I25.10 Atherosclerotic heart disease of native coronary artery without angina pectoris; F02.80 Dementia in other diseases classified elsewhere, unspecified severity, without behavioral disturbance, psychotic disturbance, mood disturbance, and anxiety; H54.8 Legal blindness, as defined in USA; H91.90 Unspecified hearing loss, unspecified ear; R62.7 Adult failure to thrive; Z79.01 Long term (current) use of anticoagulants; Z74.01 Bed confinement status; Z85.038 Personal history of other malignant neoplasm of large intestine; Z87.891 Personal history of nicotine dependence; Z90.49 Acquired absence of other specified parts of digestive tract; Z95.1 Presence of aortocoronary bypass graft; Z95.2 Presence of prosthetic heart valve; Z88.8 Allergy status to other drugs, medicaments and biological substances; Z89.421 Acquired absence of other right toe(s); Z68.27 Body mass index [BMI] 27.0-27.9, adult
CPT/HCPCS: 36415; 70450; 71045; 74176; 80048; 80053; 81001; 82140; 82550; 82553; 82948; 83880; 84484; 85025; 85027; 85610; 85730; 87088; 87186; 93005; 97039; A4218; A4346; C1894; J1644; J1956; J2060; J2185; J3370; J7030; J7040; Q9963

== ENCOUNTER 2018-02-16 08:10 | Inpatient (IN) | payer MEDICARE ==
[~2018-02-16] VITALS: Ht 175.3 cm; Wt 77.3 kg
[~2018-02-16 08:10] MED LIST changes: +ASCO500T8 PO; +ATOR10TA69 PO; +BISM262O PO; +CARB1DRO25 OU; +ERYT1OIN7 OU; -INSU100C6 SQ; +INSU100I3 SQ; -LATA2.5D2 OU; -MEMA5TAB15 PO; -OMEP20CA10 PO; +PANT40TA PO; +VIT1CAPS4 PO; -WARF-67 PO; +XALA2.5OS OU; +[UNRECOGNIZED DRUG - CODE] OU
[2018-02-16 08:43] LABS: ABG BASE EXCESS 1.3 mmol/L (-2.0-3.0); ABG HCO3 26.6 mmol/L (21.0-28.0); ABG OXYGEN SATURATION 92.9 % (95.0-99.0); ABG PCO2 44 mmHg (35-48)
[2018-02-16 09:02] LABS: BASOPHILS % (AUTO) 0.6 % (0.0-5.0); EOSINOPHILS % (AUTO) 1.4 % (0.0-8.0); LYMPHOCYTES % (AUTO) 5.5 % (21.0-51.0); MEAN CORPUSCULAR HEMOGLOBIN 31.2 pg (27.0-33.0); MEAN CORPUSCULAR HGB CONC 33.7 g/dL (32.0-36.0); MEAN CORPUSCULAR VOLUME 92.6 fL (79-99); NEUTROPHILS % (AUTO) 86.5 % (40.0-77.0); PLATELET COUNT (AUTO) 101 K/uL (130-400); RED BLOOD CELL COUNT(AUTO) 3.46 MIL/uL (4.50-6.20); RED CELL DISTRIBUTION WIDTH 16.9 % (11.0-15.5); WHITE BLOOD COUNT (AUTO) 9.3 K/uL (4.8-10.8)
[2018-02-16 09:11] LABS: CREATININE 1.1 mg/dL (0.5-1.5); POTASSIUM 3.9 mmol/L (3.5-5.1)
[2018-02-16 09:12] LABS: BILIRUBIN,URINE NEGATIVE (NEGATIVE); COLOR,URINE YELLOW (YELLOW); GLUCOSE, URINE (UA) NEGATIVE (NEGATIVE); KETONES,URINE NEGATIVE (NEGATIVE); LEUKOCYTE ESTERASE ,URINE MODERATE (NEGATIVE); NITRATE,URINE NEGATIVE (NEGATIVE); OCCULT BLOOD,URINE LARGE (NEGATIVE); PH,URINE 5.5 (5.0-8.0); PROTEIN,URINE 100 (NEGATIVE)
[2018-02-16 09:17] LABS: APPEARANCE,URINE SLIGHTLY CLOUDY (CLEAR)
[2018-02-16 09:25] LABS: ALBUMIN 1.9 g/dL (3.5-5.0); CREATINE KINASE MB 1.1 ng/mL (0.5-3.6); DIGOXIN 0.26 ng/mL (0.50-2.00); TOTAL PROTEIN, SERUM 7.2 g/dL (6.0-8.3)
[2018-02-16 09:36] LABS: BACTERIA,URINE Moderate /HPF (None Seen); MUCUS,URINE Few LPF (None Seen); SQUAMOUS EPITHELIAL CELL,UR Rare /HPF (0-2); WBC,URINE 51-100 /HPF (0-1)
[2018-02-16 09:37] LABS: INR 1.51 (0.85-1.15); PARTIAL THROMBOPLASTIN TIME 38.7 SEC (26.3-35.5); PROTHROMBIN TIME 15.7 SEC (9.6-11.6)
[2018-02-16] MEDS ORDERED: FUROSEMIDE 10 MG/ML 4ML VIAL ONE ×2 (10:08→19:19)
[2018-02-16] MEDS ORDERED: RIVASTIGMINE 4.6MG/24HR PATCH TD SCH (11:30)
[2018-02-16] MEDS ORDERED: PANTOPRAZOLE SODIUM 40 MG TABLET.DR PO ONE (16:40)
[2018-02-16] MEDS ORDERED: DIGOXIN 125 MCG TABLET PO SCH (17:15)
[2018-02-16 21:50] VITALS: BP 134/74
[2018-02-17] VITALS: BP 135/78
[2018-02-17] MEDS: HALOPERIDOL LACTATE 5 MG/ML VIAL IM PRN ×2 (01:01→21:51)
[2018-02-17 04:00] VITALS: BP 129/63
[2018-02-17] MEDS: FUROSEMIDE 10 MG/ML 4ML VIAL IVP SCH ×2 (05:48→11:00)
[2018-02-17 06:27] LABS: HEMATOCRIT 32.9 % (42-54); MEAN CORPUSCULAR HEMOGLOBIN 30.5 pg (27.0-33.0); MEAN CORPUSCULAR HGB CONC 32.7 g/dL (32.0-36.0); MEAN CORPUSCULAR VOLUME 93.2 fL (79-99); PLATELET COUNT (AUTO) 103 K/uL (130-400); RED BLOOD CELL COUNT(AUTO) 3.54 MIL/uL (4.50-6.20); RED CELL DISTRIBUTION WIDTH 16.8 % (11.0-15.5); WHITE BLOOD COUNT (AUTO) 6.2 K/uL (4.8-10.8)
[2018-02-17 06:30] LABS: POTASSIUM 3.9 mmol/L (3.5-5.1)
[2018-02-17 06:34] LABS: INR 1.3 (0.85-1.15); PARTIAL THROMBOPLASTIN TIME 38.7 SEC (26.3-35.5); PROTHROMBIN TIME 13.6 SEC (9.6-11.6)
[2018-02-17 08:00] VITALS: BP 103/55
[2018-02-17] MEDS ORDERED: WARF2.5T47 PO (08:35)
[2018-02-17] MEDS ORDERED: ACET-2247 PO (08:35)
[2018-02-17] MEDS ORDERED: MUPI22O TP (08:35)
[2018-02-17] MEDS ORDERED: ONDA4TAB9 PO (08:35)
[2018-02-17] MEDS ORDERED: LACT10SO PO (08:35)
[2018-02-17] MEDS ORDERED: INSLAN SQ (08:35)
[2018-02-17] MEDS: ERYTHROMYCIN BASE 0.5% OPHTH OINT 1 GM TUBE OU SCH ×4 (09:00→21:14)
[2018-02-17] MEDS: ARTIFICAL TEARS SOL 15 ML OU SCH ×4 (09:00→21:14)
[2018-02-17] MEDS ORDERED: WARFARIN SODIUM 2.5 MG TAB PO SCH (09:00)
[2018-02-17] MEDS ORDERED: ONDANSETRON 4 MG TABLET PO PRN (09:00)
[2018-02-17] MEDS: ASCORBIC ACID 500 MG TAB PO SCH ×2 (09:00→21:14)
[2018-02-17] MEDS ORDERED: INSULIN GLARGINE 100 UNITS/ML 10 ML VIAL SQ SCH (09:00)
[2018-02-17] MEDS ORDERED: ARTIFICIAL TEARS 3.5 GM OINTMENT OU SCH (09:00)
[2018-02-17] MEDS ORDERED: LACTULOSE 20 GM/30 ML UDCUP PO PRN (09:00)
[2018-02-17] MEDS ORDERED: ACETAMINOPHEN 325 MG TAB PO PRN (09:00)
[2018-02-17] MEDS ORDERED: BISMUTH SUBSALICYLATE 262 MG/15 ML ML PO PRN (09:00)
[2018-02-17] MEDS: MUPIROCIN OINTMENT 22 GM TUBE TP SCH (09:00)
[2018-02-17] MEDS: ARTIFICIAL TEARS 3.5 GM OINTMENT OU SCH ×4 (09:00→21:14)
[2018-02-17] MEDS: FUROSEMIDE 40 MG TABLET PO SCH (10:58)
[2018-02-17] MEDS: RIVASTIGMINE 4.6MG/24HR PATCH TD SCH (11:01)
[2018-02-17 14:36] VITALS: BP 144/72
[2018-02-17 16:26] VITALS: BP 126/54
[2018-02-17 20:00] VITALS: BP 154/73
[2018-02-17] MEDS ORDERED: ATORVASTATIN CALCIUM 10 MG TABLET PO SCH (21:00)
[2018-02-17] MEDS ORDERED: LATANOPROST 2.5 ML DROPS OU SCH (21:00)
[2018-02-18] VITALS: BP 158/82
[2018-02-18 04:00] VITALS: BP 133/65
[2018-02-18] MEDS ORDERED: PANTOPRAZOLE SODIUM 40 MG TABLET.DR PO SCH (07:30)
[2018-02-18 08:00] VITALS: BP 126/57
[2018-02-18] MEDS ORDERED: DIGOXIN 125 MCG TABLET PO SCH (09:00)
[2018-02-18] MEDS: MUPIROCIN OINTMENT 22 GM TUBE TP SCH (09:00)
[2018-02-18] MEDS: FUROSEMIDE 40 MG TABLET PO SCH (10:16)
[2018-02-18] MEDS: ASCORBIC ACID 500 MG TAB PO SCH (10:16)
[2018-02-18] MEDS: RIVASTIGMINE 4.6MG/24HR PATCH TD SCH (10:17)
[2018-02-18] MEDS: ARTIFICAL TEARS SOL 15 ML OU SCH ×3 (10:19→17:00)
[2018-02-18] MEDS: ARTIFICIAL TEARS 3.5 GM OINTMENT OU SCH ×3 (10:19→17:00)
[2018-02-18] MEDS: ERYTHROMYCIN BASE 0.5% OPHTH OINT 1 GM TUBE OU SCH ×3 (10:19→17:00)
[2018-02-18 11:49] VITALS: BP 119/56
[2018-02-18] MEDS: HALOPERIDOL LACTATE 5 MG/ML VIAL IM PRN (15:47)
[2018-02-18 16:00] VITALS: BP 127/66
== END 2018-02-18 19:40 | disposition home or self-care (01) | DRG 292 ==
LOC: EDH 08:10 → OBSVTOIN 10:50 → EDHIP 10:50 → 4CH 20:11
PROVIDERS: ADMIT Internal Medicine; ATTEND Internal Medicine
DX: I11.0 Hypertensive heart disease with heart failure (principal); N39.0 Urinary tract infection, site not specified; I48.91 Unspecified atrial fibrillation; D64.9 Anemia, unspecified; E44.1 Mild protein-calorie malnutrition; E11.9 Type 2 diabetes mellitus without complications; B95.2 Enterococcus as the cause of diseases classified elsewhere; I05.9 Rheumatic mitral valve disease, unspecified; I35.9 Nonrheumatic aortic valve disorder, unspecified; H54.8 Legal blindness, as defined in USA; I50.33 Acute on chronic diastolic (congestive) heart failure; E78.5 Hyperlipidemia, unspecified; R45.1 Restlessness and agitation; R05 Cough; G30.9 Alzheimer's disease, unspecified; F02.80 Dementia in other diseases classified elsewhere, unspecified severity, without behavioral disturbance, psychotic disturbance, mood disturbance, and anxiety; I25.10 Atherosclerotic heart disease of native coronary artery without angina pectoris; N40.1 Benign prostatic hyperplasia with lower urinary tract symptoms; Z79.01 Long term (current) use of anticoagulants; Z95.1 Presence of aortocoronary bypass graft; Z95.2 Presence of prosthetic heart valve; Z83.3 Family history of diabetes mellitus; Z87.440 Personal history of urinary (tract) infections; Z74.01 Bed confinement status; Z87.01 Personal history of pneumonia (recurrent); Z86.14 Personal history of Methicillin resistant Staphylococcus aureus infection; Z88.1 Allergy status to other antibiotic agents; Z88.5 Allergy status to narcotic agent
CPT/HCPCS: 36415; 36600; 71045; 71250; 80048; 80053; 80162; 81001; 82550; 82553; 82803; 82948; 83605; 83880; 84484; 85025; 85027; 85610; 85730; 87040; 87088; 87186; 92610; 93005; J1630; J1940

== ENCOUNTER 2018-03-23 00:05 | Emergency (ER) | payer MEDICARE ==
[~2018-03-23 00:05] MED LIST changes: +ACET-2247 PO; -GENTLESORB IRON PO; -INSU100I3 SQ; +LACT10SO PO; +MUPI22O TP; +ONDA4TAB9 PO; -VIT1CAPS4 PO; +WARF2.5T47 PO
[2018-03-23] MEDS ORDERED: OCTYL 2-CYANOACRYLATE 1 EACH TP ONE (00:56)
[2018-03-23 01:05] LABS: BASOPHILS % (AUTO) 0.8 % (0.0-5.0); EOSINOPHILS % (AUTO) 2.7 % (0.0-8.0); HEMATOCRIT 30.1 % (42-54); LYMPHOCYTES % (AUTO) 12.5 % (21.0-51.0); MEAN CORPUSCULAR HEMOGLOBIN 31.1 pg (27.0-33.0); MEAN CORPUSCULAR HGB CONC 34.1 g/dL (32.0-36.0); MEAN CORPUSCULAR VOLUME 91.4 fL (79-99); MONOCYTES % (AUTO) 8.5 % (3.0-13.0); NEUTROPHILS % (AUTO) 75.5 % (40.0-77.0); PLATELET COUNT (AUTO) 65 K/uL (130-400); RED CELL DISTRIBUTION WIDTH 17.3 % (11.0-15.5); WHITE BLOOD COUNT (AUTO) 5.6 K/uL (4.8-10.8)
[2018-03-23 01:13] LABS: CREATININE 1.3 mg/dL (0.5-1.5); POTASSIUM 3.8 mmol/L (3.5-5.1)
[2018-03-23 01:17] LABS: INR 1.36 (0.85-1.15); PROTHROMBIN TIME 14.2 SEC (9.6-11.6)
[2018-03-23 01:18] LABS: ALBUMIN 1.9 g/dL (3.5-5.0); TOTAL PROTEIN, SERUM 7.3 g/dL (6.0-8.3)
[2018-03-23 01:38] LABS: PARTIAL THROMBOPLASTIN TIME > 120.0 SEC (26.3-35.5)
== END 2018-03-23 02:38 | disposition home or self-care (01) ==
LOC: EDH 00:05
DX: G30.9 Alzheimer's disease, unspecified (principal); R41.0 Disorientation, unspecified; I11.0 Hypertensive heart disease with heart failure; I50.9 Heart failure, unspecified; I25.10 Atherosclerotic heart disease of native coronary artery without angina pectoris; E11.9 Type 2 diabetes mellitus without complications; E78.5 Hyperlipidemia, unspecified; Z98.890 Other specified postprocedural states; Z79.01 Long term (current) use of anticoagulants; Z88.6 Allergy status to analgesic agent
CPT/HCPCS: 36415; 71045; 80053; 85025; 85610; 85730; 93005